=== PATIENT | male | born 1970 | race Hispanic/Latino ===

== ENCOUNTER 2017-03-15 02:14 | Day surgery (SDC) | payer OTHER ==
[~2017-03-15] VITALS: Ht 170.2 cm; Wt 138.3 kg
[~2017-03-15 02:14] MED LIST: ALBU8.5H7 IH; FENO48TA16 PO; LISI-410 PO; MONT10TA9 PO; OMEP20CA12 PO
[2017-03-15] MEDS ORDERED: LACTATED RINGERS 1,000 ML ONE (05:05)
[2017-03-15] MEDS ORDERED: LEVAQUIN 100 ML IV ONE ×2 (05:06→06:00)
[2017-03-15 06:00] VITALS: BP 138/81
[2017-03-15] MEDS ORDERED: LACTATED RINGERS 1,000 ML IV SCH ×3 (06:00→10:00)
[2017-03-15] MEDS ORDERED: SODIUM CHLORIDE IR ONE (07:19)
[2017-03-15] MEDS ORDERED: DUONEB 0.5 MG-3 MG/3 ML SOLN IH ONE ×2 (07:27→07:30)
[2017-03-15 09:43] VITALS: BP 100/57
[2017-03-15] MEDS ORDERED: CIPR500T86 PO (09:45)
[2017-03-15] MEDS ORDERED: TRAM50TA PO (09:45)
[2017-03-15 09:55] VITALS: BP 108/54
[2017-03-15] MEDS ORDERED: ZOFRAN IV PRN (10:00)
[2017-03-15 10:10] VITALS: BP 110/58
[2017-03-15 10:25] VITALS: BP 129/54
[2017-03-15 10:36] VITALS: BP 136/90
--- NOTE | 2017-03-15 12:14 | OPH ---
DATE OF SURGERY: 03/15/2017 PREOPERATIVE DIAGNOSIS: Severe phimosis. FINAL DIAGNOSIS: Severe phimosis. PROCEDURES: Circumcision. DESCRIPTION OF PROCEDURE: The patient was brought to the operating room, was put in supine position on the operating room table. Initially, the patient was put up in a sitting up position and a low spinal anesthesia was then performed. After doing the spinal anesthesia, the patient was put back in the supine position. The genitalia was then prepped and draped aseptically in the usual manner. First, a circumferential incision was done on the skin around the coronal sulcus and a clamp was placed in the dorsal part of the prepuce and after this, this was incised. The prepuce was then retracted as far back as possible and an incision was done in the coronal sulcus and the mucosa around 1 cm from the coronal sulcus and then the skin and the mucosa was excised circumferentially. All bleeders were clamped and fulgurated, some were ligated with 2-0 chromic catgut. After adequate hemostasis, the skin and mucosa was then approximated with the use of a 2-0 chromic catgut in interrupted fashion. After that, dressing was applied. The patient was then transferred to the recovery room in stable condition. Kam Dangelo MD DR: CONTRERAS/judy JOB# [id number]
== END 2017-03-15 10:43 | disposition home or self-care (01) | DRG 728 ==
LOC: SURG 02:14
PROVIDERS: ATTEND Urology
DX: N47.1 Phimosis (principal); K21.9 Gastro-esophageal reflux disease without esophagitis; G47.33 Obstructive sleep apnea (adult) (pediatric); I10 Essential (primary) hypertension; E78.00 Pure hypercholesterolemia, unspecified; J44.9 Chronic obstructive pulmonary disease, unspecified; J45.998 Other asthma; E66.01 Morbid (severe) obesity due to excess calories; Z88.0 Allergy status to penicillin; Z79.899 Other long term (current) drug therapy; Z98.890 Other specified postprocedural states; Z68.42 Body mass index [BMI] 45.0-49.9, adult
CPT/HCPCS: 36415; 54150; 85610; 85730; 94640; J1956; J7030; J7120; J7620